=== PATIENT | male | born 1960 | race Two or more races ===

== ENCOUNTER 2024-03-06 09:42 | Emergency (ER) | payer BC ==
[~2024-03-06] VITALS: Ht 177.8 cm; Wt 74.8 kg
[2024-03-06 10:26] VITALS: BP 117/73; O2SAT 100
[2024-03-06] MEDS ORDERED: GUAIFENESIN/DEXTROMETHORPHAN 10ML BLIST.PACK PO ONE (10:45)
[2024-03-06] MEDS ORDERED: DEXAMETHASONE SODIUM PHOSPHATE 4 MG/ML VIAL IM ONE (10:45)
[2024-03-06 11:19] LABS: HEMATOCRIT 42.3 % (39.0-48.0); HEMOGLOBIN 14.3 g/dL (13-16.00); MEAN CELL VOLUME 93.8 fL (80.0-100.00); MEAN CORPUSCULAR HEMOGLOBIN 31.6 pg (27.00-32.0); MEAN CORPUSCULAR HGB CONC 33.7 g/dl (32.0-36.0); PLATELET COUNT 156 K/uL (150-450); RED BLOOD COUNT 4.51 M/uL (4.00-6.00); RED CELL DISTRIBUTION WIDTH 13.2 % (11.5-14.5)
[2024-03-06] MEDS ORDERED: OSEL75CA PO (12:04)
[2024-03-06] MEDS ORDERED: DOLOGEN CAPLET1 EACH PO (12:05)
[2024-03-06] MEDS ORDERED: TUSNEL LIQUID178 ML PO (12:05)
== END 2024-03-06 12:40 | disposition home or self-care (01) ==
LOC: ER 09:44
PROVIDERS: General Practice
DX: B34.9 Viral infection, unspecified (principal); J10.1 Influenza due to other identified influenza virus with other respiratory manifestations; Z20.822 Contact with and (suspected) exposure to COVID-19; Z88.5 Allergy status to narcotic agent; Z88.6 Allergy status to analgesic agent